=== PATIENT | male | born 2000 | race Native Hawaiian/Other Pacific Islander ===

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

== ENCOUNTER 2018-02-20 13:26 | Outpatient (CLI) | payer BC | END 2018-02-20 23:49 | disposition home or self-care (01) | LOC: RAD 13:26 | DX: M19.072 Primary osteoarthritis, left ankle and foot (principal) ==

== ENCOUNTER 2022-01-21 19:19 | Emergency (ER) | payer BC ==
[~2022-01-21] VITALS: Ht 193 cm; Wt 136.1 kg
[2022-01-21 20:12] VITALS: BP 131/77; TEMP 99.4
== END 2022-01-21 20:14 | disposition home or self-care (01) ==
LOC: ED 19:19
PROC: 0HQ0XZZ Repair Scalp Skin, External Approach (ICD-10-PCS; principal; 2022-01-21)
DX: S09.8XXA Other specified injuries of head, initial encounter (principal); S01.01XA Laceration without foreign body of scalp, initial encounter; W22.8XXA Striking against or struck by other objects, initial encounter; Y92.89 Other specified places as the place of occurrence of the external cause
CPT/HCPCS: 96372; 99284; J1885

== ENCOUNTER 2022-01-30 13:20 | Emergency (ER) | payer BC ==
[~2022-01-30] VITALS: Ht 193 cm; Wt 136.1 kg
[2022-01-30 13:30] VITALS: BP 139/63; TEMP 97.9
== END 2022-01-31 13:58 | disposition home or self-care (01) ==
LOC: ED 13:20
DX: Z48.02 Encounter for removal of sutures (principal)